=== PATIENT | male | born 1965 | race Hispanic/Latino ===

== ENCOUNTER 2016-10-26 12:00 | Inpatient (IN) | payer MEDICARE ==
[2016-10-26] MEDS ORDERED: traMADol HCl 50 MG TAB PO PRN (13:04)
[2016-10-26 13:48] LABS: #Basophils 0.1 thou/uL (0.0-0.2); #Eosinphils 0.1 thou/uL (0.0-0.7); #Lymphocytes 1.5 thou/uL (1.20-3.40); #Monocytes 0.4 thou/uL (0.11-0.59); #Neutrophils 4.9 thou/uL (1.40-6.50); %Basophils 0.9 % (0.0-1.0); %Eosinophils 1.3 % (0.0-10.0); %Lymphocytes 21.5 % (21.0-51.0); %Monocytes 6.2 % (0.0-10.0); %Neutrophils 70.2 % (42.0-75.0); Hemoglobin 13.4 g/dL (14.0-18.0); Mean Corpuscular HGB CONC 34.8 g/dL (32.0-36.0); Mean Corpuscular Hemoglobin 29.6 pg (27.0-31.0); Mean Corpuscular Volume 85.1 fl (80.0-94.0); Mean Platelet Volume 6.8 fL (7.4-10.4); Platelet Count 316 thou/uL (130-400); RBC Distribution Width 11.7 % (11.5-14.5); Red Blood Cell (RBC) Count 4.53 mill/uL (4.70-6.10); White Blood Cell (WBC) Count 6.9 thou/uL (4.8-10.8)
[2016-10-26 13:54] LABS: ALT (SGPT) 11 U/L (8-55); AST (SGOT) 11 U/L (5-34); Albumin 3.4 g/dL (3.5-5.0); Alkaline Phosphatase 74 U/L (40-150); Anion Gap 13 mmol/L (10-20); BUN (Urea Nitrogen) 14 mg/dL (8.9-20.6); Bilirubin, Total 0.4 mg/dL (0.2-1.2); Calc. Creatinine Clearance 0 mL/min (70-130); Calcium 9.3 mg/dL (7.8-10.44); Carbon Dioxide 28 mmol/L (22-29); Chloride 106 mmol/L (98-107); Estimated GFR-MDRD Greater than 90; Globulin 3.5 g/dL (2.4-3.5); Glucose 93 mg/dL (70-105); Potassium 3.6 mmol/L (3.5-5.1); Protein, Total 6.9 g/dL (6.0-8.3); Sodium 143 mmol/L (136-145)
[2016-10-26] MEDS: Piperacillin/Tazobactam 2.25 GM in Sodium Chloride 0.9% 100 ML IVPB SCH ×2 (16:00→23:33)
[2016-10-26] MEDS: Enoxaparin Sodium 30 MG/0.3 ML SYRINGE SC SCH (18:56)
--- NOTE | 2016-10-26 20:58 | RAD ---
PELVIS ONE VIEW: Date: 10-26-16 FINDINGS: A single view of the pelvis shows an area of distinct lucency in the right ischial tuberosity. If th is correlates with the site of the decubitus ulcer, the possibility of osteomyelitis should be stron gly considered. The remainder of the bony pelvis appears intact with no fracture or area of bony enrique truction. There is narrowing of each hip joint with mild osteophytes. Bursal calcifications are seen over each greater trochanter. IMPRESSION: Lucency of the right ischial tuberosity. If correlating with the site of known ulcer, the possibilit y of osteomyelitis should be considered. MRI, if the patient is able, would be the next step. POS: HOME
[2016-10-26] MEDS ORDERED: Vancomycin HCl 1.5 GM in Sodium Chloride 0.9% 250 ML 300 ML IVPB SCH (21:00)
[2016-10-26] MEDS ORDERED: Vancomycin HCl 750 MG in Sodium Chloride 0.9% 250 ML 250 ML IVPB SCH ×4 (21:15)
[2016-10-27] MEDS: Piperacillin/Tazobactam 2.25 GM in Sodium Chloride 0.9% 100 ML IVPB SCH ×2 (05:50→15:34)
[2016-10-27] MEDS ORDERED: Vancomycin HCl 750 MG in Sodium Chloride 0.9% 250 ML 250 ML IVPB SCH ×2 (09:00→09:45)
[2016-10-27] MEDS ORDERED: Saccharomyces boulardii 250 MG CAP PO SCH (09:00)
[2016-10-27] MEDS: Enoxaparin Sodium 30 MG/0.3 ML SYRINGE SC SCH (17:16)
[2016-10-27 18:52] VITALS: BP 101/65; TEMP 98.4
--- NOTE | 2016-10-27 19:10 | RAD ---
CERVICAL SPINE ONE VIEW 10/27/16 Single AP view was obtained for MRI clearance. There is no lateral view. A single tie wire is seen o verlying the lower cervical spine. This is presumably from old cervical spine surgery. The odds that this would be significant or a contraindication for an MRI are low. The final determination of such will need to be done by the radiologist reading the MRI. Typically, wires such as this would not be an issue. IMPRESSION: Single tie wire is noted. See comments above. POS: HOME
== END 2016-10-27 20:10 | disposition short-term general hospital (02) | DRG 539 ==
LOC: BURMED 12:00
PROVIDERS: ADMIT Family Medicine; ATTEND Family Medicine
DX: M86.8X8 Other osteomyelitis, other site (principal); L89.314 Pressure ulcer of right buttock, stage 4; G82.20 Paraplegia, unspecified; N31.9 Neuromuscular dysfunction of bladder, unspecified
CPT/HCPCS: 36415; 72020; 72170; 80053; 85025; 87040; 87070; 87077; 87186; 87205; 97602; A4216; J1650; J2543; J3370; J7050

== ENCOUNTER 2016-11-03 16:45 | Inpatient (IN) | payer MEDICARE ==
[2016-11-03] MEDS ORDERED: Lisinopril 5 MG TAB ONE (19:29)
[2016-11-03 20:10] VITALS: BMI 15.7
[2016-11-03] MEDS: traMADol HCl 50 MG TAB PO PRN (22:29)
[2016-11-03] MEDS: metroNIDAZOLE 250 MG TAB PO SCH (22:29)
[2016-11-04] MEDS: metroNIDAZOLE 250 MG TAB PO SCH ×3 (08:49→20:52)
[2016-11-04] MEDS: Saccharomyces boulardii 250 MG CAP PO SCH (08:50)
[2016-11-04] MEDS: cefTRIAXone\\ROCEPHIN 2 GM in Sodium Chloride 0.9% 100 ML IVPB SCH (13:32)
[2016-11-04] MEDS: Enoxaparin Sodium 30 MG/0.3 ML SYRINGE SC SCH (18:27)
[2016-11-04] MEDS: traMADol HCl 50 MG TAB PO PRN (20:57)
[2016-11-05] MEDS: metroNIDAZOLE 250 MG TAB PO SCH ×3 (09:42→20:17)
[2016-11-05] MEDS: Saccharomyces boulardii 250 MG CAP PO SCH (09:43)
[2016-11-05] MEDS: cefTRIAXone\\ROCEPHIN 2 GM in Sodium Chloride 0.9% 100 ML IVPB SCH (13:17)
[2016-11-05] MEDS: Enoxaparin Sodium 30 MG/0.3 ML SYRINGE SC SCH (18:29)
[2016-11-05] MEDS: traMADol HCl 50 MG TAB PO PRN (21:49)
[2016-11-06] MEDS: Saccharomyces boulardii 250 MG CAP PO SCH (08:58)
[2016-11-06] MEDS: metroNIDAZOLE 250 MG TAB PO SCH ×3 (08:59→21:10)
[2016-11-06] MEDS: cefTRIAXone\\ROCEPHIN 2 GM in Sodium Chloride 0.9% 100 ML IVPB SCH (13:38)
[2016-11-06] MEDS: Enoxaparin Sodium 30 MG/0.3 ML SYRINGE SC SCH (18:40)
[2016-11-06] MEDS: traMADol HCl 50 MG TAB PO PRN (21:10)
[2016-11-07] MEDS: metroNIDAZOLE 250 MG TAB PO SCH ×3 (09:03→21:28)
[2016-11-07] MEDS: Saccharomyces boulardii 250 MG CAP PO SCH (09:03)
[2016-11-07] MEDS: cefTRIAXone\\ROCEPHIN 2 GM in Sodium Chloride 0.9% 100 ML IVPB SCH (12:18)
[2016-11-07] MEDS: Enoxaparin Sodium 30 MG/0.3 ML SYRINGE SC SCH (18:18)
[2016-11-08] MEDS: metroNIDAZOLE 250 MG TAB PO SCH ×3 (08:49→21:06)
[2016-11-08] MEDS: Saccharomyces boulardii 250 MG CAP PO SCH (08:50)
[2016-11-08] MEDS: cefTRIAXone\\ROCEPHIN 2 GM in Sodium Chloride 0.9% 100 ML IVPB SCH (12:18)
[2016-11-08] MEDS: Enoxaparin Sodium 30 MG/0.3 ML SYRINGE SC SCH (18:37)
[2016-11-09] MEDS: metroNIDAZOLE 250 MG TAB PO SCH ×3 (09:09→21:33)
[2016-11-09] MEDS: Saccharomyces boulardii 250 MG CAP PO SCH (09:10)
[2016-11-09] MEDS: cefTRIAXone\\ROCEPHIN 2 GM in Sodium Chloride 0.9% 100 ML IVPB SCH (11:26)
[2016-11-09] MEDS: Enoxaparin Sodium 30 MG/0.3 ML SYRINGE SC SCH (17:52)
[2016-11-09] MEDS: traMADol HCl 50 MG TAB PO PRN (21:33)
[2016-11-10] MEDS: metroNIDAZOLE 250 MG TAB PO SCH ×3 (10:32→20:58)
[2016-11-10] MEDS: Saccharomyces boulardii 250 MG CAP PO SCH (10:33)
[2016-11-10] MEDS: cefTRIAXone\\ROCEPHIN 2 GM in Sodium Chloride 0.9% 100 ML IVPB SCH (11:59)
[2016-11-10] MEDS: Enoxaparin Sodium 30 MG/0.3 ML SYRINGE SC SCH (17:53)
[2016-11-11] MEDS: Saccharomyces boulardii 250 MG CAP PO SCH (08:26)
[2016-11-11] MEDS: metroNIDAZOLE 250 MG TAB PO SCH ×3 (08:26→21:19)
[2016-11-11] MEDS: cefTRIAXone\\ROCEPHIN 2 GM in Sodium Chloride 0.9% 100 ML IVPB SCH (12:21)
[2016-11-11] MEDS: Enoxaparin Sodium 30 MG/0.3 ML SYRINGE SC SCH (17:18)
[2016-11-11] MEDS: traMADol HCl 50 MG TAB PO PRN (21:25)
[2016-11-12] MEDS: metroNIDAZOLE 250 MG TAB PO SCH ×3 (08:54→21:24)
[2016-11-12] MEDS: Saccharomyces boulardii 250 MG CAP PO SCH (08:55)
[2016-11-12] MEDS: cefTRIAXone\\ROCEPHIN 2 GM in Sodium Chloride 0.9% 100 ML IVPB SCH (12:20)
[2016-11-12] MEDS: Enoxaparin Sodium 30 MG/0.3 ML SYRINGE SC SCH (18:01)
[2016-11-13] MEDS: metroNIDAZOLE 250 MG TAB PO SCH ×3 (09:47→20:42)
[2016-11-13] MEDS: Saccharomyces boulardii 250 MG CAP PO SCH (09:48)
[2016-11-13] MEDS: cefTRIAXone\\ROCEPHIN 2 GM in Sodium Chloride 0.9% 100 ML IVPB SCH (12:55)
[2016-11-13] MEDS: Enoxaparin Sodium 30 MG/0.3 ML SYRINGE SC SCH (18:23)
[2016-11-13] MEDS: traMADol HCl 50 MG TAB PO PRN (22:55)
[2016-11-14] MEDS: metroNIDAZOLE 250 MG TAB PO SCH ×3 (08:53→21:33)
[2016-11-14] MEDS: Saccharomyces boulardii 250 MG CAP PO SCH (08:53)
[2016-11-14] MEDS: cefTRIAXone\\ROCEPHIN 2 GM in Sodium Chloride 0.9% 100 ML IVPB SCH (12:19)
[2016-11-14] MEDS: Enoxaparin Sodium 30 MG/0.3 ML SYRINGE SC SCH (17:53)
[2016-11-15] MEDS: metroNIDAZOLE 250 MG TAB PO SCH ×3 (08:43→21:35)
[2016-11-15] MEDS: Saccharomyces boulardii 250 MG CAP PO SCH (08:44)
[2016-11-15] MEDS: cefTRIAXone\\ROCEPHIN 2 GM in Sodium Chloride 0.9% 100 ML IVPB SCH (13:00)
[2016-11-15] MEDS: Enoxaparin Sodium 30 MG/0.3 ML SYRINGE SC SCH (17:30)
[2016-11-16] MEDS: metroNIDAZOLE 250 MG TAB PO SCH ×3 (08:42→21:51)
[2016-11-16] MEDS: Saccharomyces boulardii 250 MG CAP PO SCH (08:43)
[2016-11-16] MEDS: traMADol HCl 50 MG TAB PO PRN (10:27)
[2016-11-16] MEDS: cefTRIAXone\\ROCEPHIN 2 GM in Sodium Chloride 0.9% 100 ML IVPB SCH (12:56)
[2016-11-16] MEDS: Enoxaparin Sodium 30 MG/0.3 ML SYRINGE SC SCH (18:08)
[2016-11-17] MEDS: Saccharomyces boulardii 250 MG CAP PO SCH (08:36)
[2016-11-17] MEDS: metroNIDAZOLE 250 MG TAB PO SCH ×3 (08:36→21:54)
[2016-11-17] MEDS: cefTRIAXone\\ROCEPHIN 2 GM in Sodium Chloride 0.9% 100 ML IVPB SCH (12:44)
[2016-11-17] MEDS: Enoxaparin Sodium 30 MG/0.3 ML SYRINGE SC SCH (17:58)
[2016-11-18] MEDS: metroNIDAZOLE 250 MG TAB PO SCH ×3 (08:39→20:56)
[2016-11-18] MEDS: Saccharomyces boulardii 250 MG CAP PO SCH (08:40)
[2016-11-18] MEDS: traMADol HCl 50 MG TAB PO PRN (10:26)
[2016-11-18] MEDS: cefTRIAXone\\ROCEPHIN 2 GM in Sodium Chloride 0.9% 100 ML IVPB SCH (12:21)
[2016-11-18] MEDS: Enoxaparin Sodium 30 MG/0.3 ML SYRINGE SC SCH (17:43)
[2016-11-19] MEDS: metroNIDAZOLE 250 MG TAB PO SCH ×3 (08:41→21:24)
[2016-11-19] MEDS: Saccharomyces boulardii 250 MG CAP PO SCH (08:41)
[2016-11-19] MEDS: cefTRIAXone\\ROCEPHIN 2 GM in Sodium Chloride 0.9% 100 ML IVPB SCH (12:13)
[2016-11-19] MEDS: Enoxaparin Sodium 30 MG/0.3 ML SYRINGE SC SCH (17:45)
[2016-11-20 06:37] LABS: Hemoglobin 14.4 g/dL (14.0-18.0); Platelet Count 171 thou/uL (130-400)
[2016-11-20 06:48] LABS: Calc. Creatinine Clearance 106 mL/min (70-130); Estimated GFR-MDRD Greater than 90
[2016-11-20] MEDS: Saccharomyces boulardii 250 MG CAP PO SCH (08:30)
[2016-11-20] MEDS: metroNIDAZOLE 250 MG TAB PO SCH ×3 (08:30→20:08)
[2016-11-20] MEDS: cefTRIAXone\\ROCEPHIN 2 GM in Sodium Chloride 0.9% 100 ML IVPB SCH (12:44)
[2016-11-20] MEDS: Enoxaparin Sodium 30 MG/0.3 ML SYRINGE SC SCH (18:07)
[2016-11-21] MEDS: metroNIDAZOLE 250 MG TAB PO SCH ×3 (09:13→21:01)
[2016-11-21] MEDS: Saccharomyces boulardii 250 MG CAP PO SCH (09:13)
[2016-11-21] MEDS: cefTRIAXone\\ROCEPHIN 2 GM in Sodium Chloride 0.9% 100 ML IVPB SCH (12:14)
[2016-11-21] MEDS ORDERED: metroNIDAZOLE 250 MG TAB ONE ×2 (17:40)
[2016-11-21] MEDS ORDERED: Enoxaparin Sodium 30 MG/0.3 ML SYRINGE ONE (17:41)
[2016-11-21] MEDS: Enoxaparin Sodium 30 MG/0.3 ML SYRINGE SC SCH (18:00)
[2016-11-22 05:57] LABS: #Basophils 0.1 thou/uL (0.0-0.2); #Eosinphils 0.1 thou/uL (0.0-0.7); #Lymphocytes 1.4 thou/uL (1.20-3.40); #Monocytes 0.4 thou/uL (0.11-0.59); #Neutrophils 1.9 thou/uL (1.40-6.50); %Basophils 1.7 % (0.0-1.0); %Eosinophils 1.8 % (0.0-10.0); %Monocytes 10.8 % (0.0-10.0); %Neutrophils 48.6 % (42.0-75.0); Mean Corpuscular Hemoglobin 30.2 pg (27.0-31.0); Mean Corpuscular Volume 88.7 fl (80.0-94.0); Mean Platelet Volume 9.8 fL (7.4-10.4); Platelet Count 159 thou/uL (130-400); RBC Distribution Width 12.5 % (11.5-14.5); Red Blood Cell (RBC) Count 4.63 mill/uL (4.70-6.10); White Blood Cell (WBC) Count 3.8 thou/uL (4.8-10.8)
[2016-11-22 06:11] LABS: ALT (SGPT) 21 U/L (8-55); AST (SGOT) 21 U/L (5-34); Albumin 3.2 g/dL (3.5-5.0); Alkaline Phosphatase 65 U/L (40-150); Anion Gap 13 mmol/L (10-20); BUN (Urea Nitrogen) 10 mg/dL (8.9-20.6); Bilirubin, Total 0.3 mg/dL (0.2-1.2); Calc. Creatinine Clearance 104 mL/min (70-130); Calcium 8.7 mg/dL (7.8-10.44); Carbon Dioxide 27 mmol/L (22-29); Chloride 103 mmol/L (98-107); Estimated GFR-MDRD Greater than 90; Globulin 2.7 g/dL (2.4-3.5); Glucose 91 mg/dL (70-105); Potassium 3.8 mmol/L (3.5-5.1); Protein, Total 5.9 g/dL (6.0-8.3); Sodium 139 mmol/L (136-145)
[2016-11-22] MEDS: metroNIDAZOLE 250 MG TAB PO SCH ×3 (09:20→21:38)
[2016-11-22] MEDS: Saccharomyces boulardii 250 MG CAP PO SCH (09:20)
[2016-11-22] MEDS: cefTRIAXone\\ROCEPHIN 2 GM in Sodium Chloride 0.9% 100 ML IVPB SCH (11:57)
[2016-11-22 15:37] LABS: CRP (Inflammatory) Less than 0.50 mg/dL (= or < 0.5)
[2016-11-22] MEDS: Enoxaparin Sodium 30 MG/0.3 ML SYRINGE SC SCH (17:54)
[2016-11-23] MEDS: metroNIDAZOLE 250 MG TAB PO SCH ×3 (08:22→20:41)
[2016-11-23] MEDS: Saccharomyces boulardii 250 MG CAP PO SCH (08:22)
[2016-11-23] MEDS: cefTRIAXone\\ROCEPHIN 2 GM in Sodium Chloride 0.9% 100 ML IVPB SCH (15:38)
[2016-11-23] MEDS: Enoxaparin Sodium 30 MG/0.3 ML SYRINGE SC SCH (17:18)
[2016-11-24 05:32] LABS: Hemoglobin 13.7 g/dL (14.0-18.0); Platelet Count 162 thou/uL (130-400)
[2016-11-24 05:41] LABS: Calc. Creatinine Clearance 104 mL/min (70-130); Estimated GFR-MDRD Greater than 90
[2016-11-24] MEDS: metroNIDAZOLE 250 MG TAB PO SCH ×3 (09:10→21:00)
[2016-11-24] MEDS: Saccharomyces boulardii 250 MG CAP PO SCH (09:11)
[2016-11-24] MEDS: cefTRIAXone\\ROCEPHIN 2 GM in Sodium Chloride 0.9% 100 ML IVPB SCH (12:02)
[2016-11-24] MEDS: Enoxaparin Sodium 30 MG/0.3 ML SYRINGE SC SCH (17:46)
[2016-11-25] MEDS: Saccharomyces boulardii 250 MG CAP PO SCH (09:21)
[2016-11-25] MEDS: metroNIDAZOLE 250 MG TAB PO SCH ×3 (09:21→21:24)
[2016-11-25] MEDS: cefTRIAXone\\ROCEPHIN 2 GM in Sodium Chloride 0.9% 100 ML IVPB SCH (12:33)
[2016-11-25] MEDS: Enoxaparin Sodium 30 MG/0.3 ML SYRINGE SC SCH (17:30)
[2016-11-26 05:14] LABS: Hemoglobin 14.3 g/dL (14.0-18.0); Platelet Count 137 thou/uL (130-400)
[2016-11-26 05:21] LABS: Calc. Creatinine Clearance 100 mL/min (70-130); Estimated GFR-MDRD Greater than 90
[2016-11-26] MEDS: metroNIDAZOLE 250 MG TAB PO SCH ×3 (09:18→21:24)
[2016-11-26] MEDS: Saccharomyces boulardii 250 MG CAP PO SCH (09:19)
[2016-11-26] MEDS: cefTRIAXone\\ROCEPHIN 2 GM in Sodium Chloride 0.9% 100 ML IVPB SCH (13:12)
[2016-11-26] MEDS: Enoxaparin Sodium 30 MG/0.3 ML SYRINGE SC SCH (18:50)
[2016-11-27] MEDS: metroNIDAZOLE 250 MG TAB PO SCH ×3 (08:53→21:42)
[2016-11-27] MEDS: Saccharomyces boulardii 250 MG CAP PO SCH (08:53)
[2016-11-27] MEDS: cefTRIAXone\\ROCEPHIN 2 GM in Sodium Chloride 0.9% 100 ML IVPB SCH (12:31)
[2016-11-27] MEDS: Enoxaparin Sodium 30 MG/0.3 ML SYRINGE SC SCH (18:41)
[2016-11-28 06:04] LABS: Hemoglobin 14.2 g/dL (14.0-18.0); Platelet Count 129 thou/uL (130-400)
[2016-11-28 06:30] LABS: Calc. Creatinine Clearance 102 mL/min (70-130); Estimated GFR-MDRD Greater than 90
[2016-11-28] MEDS: Saccharomyces boulardii 250 MG CAP PO SCH (09:17)
[2016-11-28] MEDS: metroNIDAZOLE 250 MG TAB PO SCH ×3 (09:17→21:53)
[2016-11-28] MEDS: cefTRIAXone\\ROCEPHIN 2 GM in Sodium Chloride 0.9% 100 ML IVPB SCH (11:44)
[2016-11-28] MEDS: traMADol HCl 50 MG TAB PO PRN (17:38)
[2016-11-28] MEDS: Enoxaparin Sodium 30 MG/0.3 ML SYRINGE SC SCH (17:39)
[2016-11-28] MEDS: Acetaminophen 325 MG TAB PO PRN (20:21)
[2016-11-29] MEDS: Acetaminophen 325 MG TAB PO PRN ×2 (06:01→15:23)
[2016-11-29] MEDS: Saccharomyces boulardii 250 MG CAP PO SCH (08:58)
[2016-11-29] MEDS: metroNIDAZOLE 250 MG TAB PO SCH ×3 (08:58→21:46)
[2016-11-29 11:07] LABS: #Lymphocytes 0.5 thou/uL (1.20-3.40); #Monocytes 0.3 thou/uL (0.11-0.59); #Neutrophils 1.6 thou/uL (1.40-6.50); %Basophils 1.3 % (0.0-1.0); %Lymphocytes 19.1 % (21.0-51.0); %Neutrophils 66.6 % (42.0-75.0); Mean Corpuscular HGB CONC 33.9 g/dL (32.0-36.0); Mean Corpuscular Hemoglobin 30.1 pg (27.0-31.0); Mean Corpuscular Volume 88.7 fl (80.0-94.0); Mean Platelet Volume 10.1 fL (7.4-10.4); PLT Morphology Comment PATIENT HISTORY OF DECREASING PLATELET COUNTS; Platelet Count 109 thou/uL (130-400); RBC Distribution Width 12.5 % (11.5-14.5); Red Blood Cell (RBC) Count 4.64 mill/uL (4.70-6.10); White Blood Cell (WBC) Count 2.4 thou/uL (4.8-10.8)
[2016-11-29 11:14] LABS: Bilirubin Negative (Negative); Blood, Urine Negative (Negative); Clarity Clear (Clear); Glucose, Urine (Dipstick) Negative (Negative); Leukocyte Trace (Negative); Nitrite Negative (Negative); Protein, Urine (Dipstick) Negative (Neg-Trace); Urobilinogen 0.2 mg/dL (0.2-1.0)
[2016-11-29 11:26] LABS: Bacteria/HPF None Seen HPF (None Seen); Crystals/HPF None Seen HPF (Negative); Hyaline Casts/LPF NONE SEEN LPF (0-3 Hyaline); Other Casts/LPF None Seen LPF (0-3 Hyaline); Oval Fat Bodies/HPF None Seen HPF (None Seen); RBC/HPF None Seen HPF (0-3); Renal Epithelial None Seen HPF (0-3); Sperm/HPF None Seen HPF (None Seen); Squamous Epithelial 0-3 HPF (0-3); Transitional Epithelial NONE SEEN HPF (0-3); Trichomonas/HPF None Seen HPF (None Seen); WBC/HPF 0-3 HPF (0-3); Yeast-All Forms None Seen HPF (None Seen)
[2016-11-29 11:27] LABS: MDiff Complete? YES
[2016-11-29] MEDS: cefTRIAXone\\ROCEPHIN 2 GM in Sodium Chloride 0.9% 100 ML IVPB SCH (12:38)
[2016-11-29] MEDS: Enoxaparin Sodium 30 MG/0.3 ML SYRINGE SC SCH (17:44)
[2016-11-30 05:41] LABS: Calc. Creatinine Clearance 108 mL/min (70-130); Estimated GFR-MDRD Greater than 90
[2016-11-30 05:48] LABS: Hemoglobin 14.2 g/dL (14.0-18.0); Platelet Count 99 thou/uL (130-400)
[2016-11-30] MEDS: Saccharomyces boulardii 250 MG CAP PO SCH (09:12)
[2016-11-30] MEDS ORDERED: traMADol HCl 50 MG TAB PO PRN ×2 (10:53)
[2016-11-30] MEDS: cefTRIAXone\\ROCEPHIN 2 GM in Sodium Chloride 0.9% 100 ML IVPB SCH (12:10)
[2016-11-30] MEDS ORDERED: metroNIDAZOLE 250 MG TAB PO SCH (15:00)
[2016-11-30] MEDS: metroNIDAZOLE 250 MG TAB PO SCH ×2 (15:15→21:46)
[2016-11-30] MEDS: Enoxaparin Sodium 30 MG/0.3 ML SYRINGE SC SCH (17:21)
[2016-12-01] MEDS: Saccharomyces boulardii 250 MG CAP PO SCH (08:49)
[2016-12-01] MEDS: metroNIDAZOLE 250 MG TAB PO SCH ×3 (08:49→21:47)
[2016-12-01] MEDS: cefTRIAXone\\ROCEPHIN 2 GM in Sodium Chloride 0.9% 100 ML IVPB SCH (13:10)
[2016-12-01] MEDS: Enoxaparin Sodium 30 MG/0.3 ML SYRINGE SC SCH (17:12)
[2016-12-02 05:07] LABS: Calc. Creatinine Clearance 106 mL/min (70-130); Estimated GFR-MDRD Greater than 90
[2016-12-02 05:09] LABS: Hemoglobin 13.8 g/dL (14.0-18.0); Platelet Count 109 thou/uL (130-400)
[2016-12-02] MEDS: Saccharomyces boulardii 250 MG CAP PO SCH (09:30)
[2016-12-02] MEDS: metroNIDAZOLE 250 MG TAB PO SCH ×3 (09:30→20:31)
[2016-12-02] MEDS: cefTRIAXone\\ROCEPHIN 2 GM in Sodium Chloride 0.9% 100 ML IVPB SCH (13:00)
[2016-12-02] MEDS: Enoxaparin Sodium 30 MG/0.3 ML SYRINGE SC SCH (17:58)
[2016-12-03] MEDS: metroNIDAZOLE 250 MG TAB PO SCH ×3 (09:05→20:43)
[2016-12-03] MEDS: Saccharomyces boulardii 250 MG CAP PO SCH (09:05)
[2016-12-03] MEDS: cefTRIAXone\\ROCEPHIN 2 GM in Sodium Chloride 0.9% 100 ML IVPB SCH (12:47)
[2016-12-03] MEDS: Enoxaparin Sodium 30 MG/0.3 ML SYRINGE SC SCH (17:53)
[2016-12-04] MEDS ORDERED: Gabapentin 300 MG CAP PO PRN (07:31)
[2016-12-04] MEDS ORDERED: Baclofen 10 MG TAB PO PRN (07:31)
[2016-12-04 07:37] LABS: Calc. Creatinine Clearance 100 mL/min (70-130); Estimated GFR-MDRD Greater than 90
[2016-12-04 07:38] LABS: Platelet Count 118 thou/uL (130-400)
[2016-12-04] MEDS: metroNIDAZOLE 250 MG TAB PO SCH ×3 (08:32→20:47)
[2016-12-04] MEDS: Saccharomyces boulardii 250 MG CAP PO SCH (08:33)
[2016-12-04] MEDS: cefTRIAXone\\ROCEPHIN 2 GM in Sodium Chloride 0.9% 100 ML IVPB SCH (12:28)
[2016-12-04] MEDS: Enoxaparin Sodium 30 MG/0.3 ML SYRINGE SC SCH (18:10)
[2016-12-05] MEDS: Saccharomyces boulardii 250 MG CAP PO SCH (09:25)
[2016-12-05] MEDS: metroNIDAZOLE 250 MG TAB PO SCH ×3 (09:25→20:57)
[2016-12-05] MEDS: cefTRIAXone\\ROCEPHIN 2 GM in Sodium Chloride 0.9% 100 ML IVPB SCH (12:01)
[2016-12-05] MEDS: Enoxaparin Sodium 30 MG/0.3 ML SYRINGE SC SCH (17:39)
[2016-12-05] MEDS: Acetaminophen 325 MG TAB PO PRN (23:11)
[2016-12-05] MEDS ORDERED: Ondansetron HCl/PF 4 MG/2 ML Vial SLOW IVP PRN (23:25)
[2016-12-06 06:19] LABS: Band 1 % (5-11); Eosinophils 2 % (0-10); Hemoglobin 13.6 g/dL (14.0-18.0); Lymphocytes 21 % (21-51); MDiff Complete? YES; Mean Corpuscular HGB CONC 33.8 g/dL (32.0-36.0); Mean Corpuscular Hemoglobin 29.4 pg (27.0-31.0); Mean Platelet Volume 9.4 fL (7.4-10.4); Monocytes 8 % (0-10); Neutrophil 68 % (42-75); Platelet Count 146 thou/uL (130-400); RBC Distribution Width 12.2 % (11.5-14.5); Red Blood Cell (RBC) Count 4.62 mill/uL (4.70-6.10); White Blood Cell (WBC) Count 6.2 thou/uL (4.8-10.8)
[2016-12-06 06:23] LABS: Calc. Creatinine Clearance 102 mL/min (70-130); Estimated GFR-MDRD Greater than 90
[2016-12-06] MEDS: Saccharomyces boulardii 250 MG CAP PO SCH (09:33)
[2016-12-06] MEDS: metroNIDAZOLE 250 MG TAB PO SCH ×3 (09:33→20:46)
[2016-12-06] MEDS: cefTRIAXone\\ROCEPHIN 2 GM in Sodium Chloride 0.9% 100 ML IVPB SCH (12:07)
[2016-12-06] MEDS: Enoxaparin Sodium 30 MG/0.3 ML SYRINGE SC SCH (18:05)
[2016-12-07] MEDS: metroNIDAZOLE 250 MG TAB PO SCH ×3 (10:05→20:54)
[2016-12-07] MEDS: Saccharomyces boulardii 250 MG CAP PO SCH (10:06)
[2016-12-07] MEDS: cefTRIAXone\\ROCEPHIN 2 GM in Sodium Chloride 0.9% 100 ML IVPB SCH (11:47)
[2016-12-07] MEDS: Enoxaparin Sodium 30 MG/0.3 ML SYRINGE SC SCH (17:57)
[2016-12-08 05:12] LABS: Hemoglobin 13.3 g/dL (14.0-18.0); Platelet Count 157 thou/uL (130-400)
[2016-12-08 05:20] LABS: Calc. Creatinine Clearance 108 mL/min (70-130); Estimated GFR-MDRD Greater than 90
[2016-12-08] MEDS: metroNIDAZOLE 250 MG TAB PO SCH ×3 (08:28→21:10)
[2016-12-08] MEDS: Saccharomyces boulardii 250 MG CAP PO SCH (08:29)
[2016-12-08] MEDS: cefTRIAXone\\ROCEPHIN 2 GM in Sodium Chloride 0.9% 100 ML IVPB SCH (11:44)
[2016-12-08] MEDS: Enoxaparin Sodium 30 MG/0.3 ML SYRINGE SC SCH (17:36)
[2016-12-09] MEDS: metroNIDAZOLE 250 MG TAB PO SCH ×3 (08:08→21:12)
[2016-12-09] MEDS: Saccharomyces boulardii 250 MG CAP PO SCH (08:08)
[2016-12-09] MEDS: cefTRIAXone\\ROCEPHIN 2 GM in Sodium Chloride 0.9% 100 ML IVPB SCH (11:29)
[2016-12-09] MEDS: Enoxaparin Sodium 30 MG/0.3 ML SYRINGE SC SCH (17:22)
[2016-12-09] MEDS: Acetaminophen 325 MG TAB PO PRN (22:43)
[2016-12-10 05:36] LABS: Hemoglobin 13.6 g/dL (14.0-18.0)
[2016-12-10 05:37] LABS: Calc. Creatinine Clearance 121 mL/min (70-130); Estimated GFR-MDRD Greater than 90; Platelet Count 185 thou/uL (130-400)
[2016-12-10] MEDS: Saccharomyces boulardii 250 MG CAP PO SCH (09:38)
[2016-12-10] MEDS: metroNIDAZOLE 250 MG TAB PO SCH ×3 (09:38→20:52)
[2016-12-10] MEDS: cefTRIAXone\\ROCEPHIN 2 GM in Sodium Chloride 0.9% 100 ML IVPB SCH (13:16)
[2016-12-10] MEDS: Enoxaparin Sodium 30 MG/0.3 ML SYRINGE SC SCH (17:52)
[2016-12-11 06:36] VITALS: BP 104/86
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
[2016-12-11] MEDS: Saccharomyces boulardii 250 MG CAP PO SCH (09:34)
[2016-12-11] MEDS: cefTRIAXone\\ROCEPHIN 2 GM in Sodium Chloride 0.9% 100 ML IVPB SCH (09:35)
[2016-12-11] MEDS: metroNIDAZOLE 250 MG TAB PO SCH (09:35)
[2016-12-11 10:43] VITALS: TEMP 98.3
== END 2016-12-11 14:45 | disposition home health service (06) | DRG 592 ==
LOC: BURMED 16:45
PROVIDERS: ADMIT Family Medicine; ATTEND Family Medicine
DX: L89.314 Pressure ulcer of right buttock, stage 4 (principal); G82.20 Paraplegia, unspecified; M86.9 Osteomyelitis, unspecified; Z99.3 Dependence on wheelchair; M60.9 Myositis, unspecified; N31.9 Neuromuscular dysfunction of bladder, unspecified; Z79.01 Long term (current) use of anticoagulants; Z95.828 Presence of other vascular implants and grafts; R50.9 Fever, unspecified
CPT/HCPCS: 36415; 81001; 82565; 85014; 85018; 85025; 85049; 85652; 86140; 87086; 97602; A4216; C1751; J0696; J1650; J2405; J7050

== ENCOUNTER 2017-09-10 20:20 | Inpatient (IN) | payer MEDICARE ==
[2017-09-11] MEDS ORDERED: traMADol HCl 50 MG TAB PO PRN (12:18)
[2017-09-11] MEDS ORDERED: Ciprofloxacin 500 MG TAB PO SCH (12:30)
[2017-09-11] MEDS ORDERED: Docusate 100 MG CAP PO PRN (13:07)
[2017-09-11] MEDS: Milk Of Magnesia 30 ML UDCUP PO PRN (13:23)
[2017-09-11] MEDS ORDERED: Ibuprofen 200 MG TAB PO PRN (14:07)
[2017-09-11] MEDS: Ciprofloxacin 500 MG TAB PO SCH (21:21)
[2017-09-12] MEDS: Floranex Packet PO SCH (08:52)
[2017-09-12] MEDS: Ciprofloxacin 500 MG TAB PO SCH ×2 (08:52→21:12)
[2017-09-12] MEDS: Milk Of Magnesia 30 ML UDCUP PO PRN (12:25)
[2017-09-12] MEDS: Bisacodyl 10 MG SUPP PR PRN (16:21)
[2017-09-12] MEDS: traMADol HCl 50 MG TAB PO PRN (18:34)
[2017-09-13 05:57] LABS: ALT (SGPT) 32 U/L (8-55); AST (SGOT) 22 U/L (5-34); Albumin 3.4 g/dL (3.5-5.0); Alkaline Phosphatase 78 U/L (40-150); Anion Gap 13 mmol/L (10-20); BUN (Urea Nitrogen) 16 mg/dL (8.9-20.6); Bilirubin, Total 0.6 mg/dL (0.2-1.2); Calc. Creatinine Clearance 119 mL/min (70-130); Carbon Dioxide 26 mmol/L (22-29); Chloride 103 mmol/L (98-107); Estimated GFR-MDRD Greater than 90; Globulin 3.3 g/dL (2.4-3.5); Glucose 99 mg/dL (70-105); Potassium 4.3 mmol/L (3.5-5.1); Protein, Total 6.7 g/dL (6.0-8.3); Sodium 138 mmol/L (136-145)
[2017-09-13 08:15] LABS: Hemoglobin 13.7 g/dL (14.0-18.0); Mean Corpuscular Volume 78.9 fL (80.0-94.0); Red Blood Cell (RBC) Count 4.85 mill/uL (4.70-6.10); White Blood Cell (WBC) Count 6.9 thou/uL (4.8-10.8)
[2017-09-13 08:16] LABS: Mean Corpuscular HGB CONC 35.7 g/dL (32.0-36.0); Mean Corpuscular Hemoglobin 28.1 pg (27.0-31.0)
[2017-09-13 08:20] LABS: #Basophils 0.1 thou/uL (0.0-0.2); #Eosinphils 0.2 thou/uL (0.0-0.7); #Lymphocytes 1.6 thou/uL (1.20-3.40); #Monocytes 0.5 thou/uL (0.11-0.59); #Neutrophils 4.5 thou/uL (1.40-6.50); %Eosinophils 2.7 % (0.0-10.0); %Lymphocytes 23.5 % (21.0-51.0); %Monocytes 7.7 % (0.0-10.0); %Neutrophils 65.1 % (42.0-75.0); Mean Platelet Volume 7.9 fL (7.4-10.4); Platelet Count 223 thou/uL (130-400); RBC Distribution Width 11.8 % (11.5-14.5)
[2017-09-13] MEDS: Ciprofloxacin 500 MG TAB PO SCH ×2 (08:31→21:35)
[2017-09-13] MEDS: Docusate 100 MG CAP PO SCH (08:31)
[2017-09-13] MEDS: Floranex Packet PO SCH (08:31)
[2017-09-13 12:15] LABS: CRP (Inflammatory) 7.85 mg/dL (= or < 0.5)
[2017-09-14] MEDS: Ciprofloxacin 500 MG TAB PO SCH ×2 (08:32→20:18)
[2017-09-14] MEDS: Docusate 100 MG CAP PO SCH (08:33)
[2017-09-14] MEDS: Floranex Packet PO SCH (08:33)
[2017-09-15] MEDS: Floranex Packet PO SCH (10:03)
[2017-09-15] MEDS: Ciprofloxacin 500 MG TAB PO SCH ×2 (10:03→21:47)
[2017-09-15] MEDS: Docusate 100 MG CAP PO SCH (10:04)
[2017-09-15] MEDS: Bisacodyl 10 MG SUPP PR PRN (17:03)
[2017-09-15] MEDS: traMADol HCl 50 MG TAB PO PRN (21:45)
[2017-09-16] MEDS ORDERED: Sodium Chloride 0.9% 0 ML ONE (07:37)
[2017-09-16] MEDS: Docusate 100 MG CAP PO SCH (08:57)
[2017-09-16] MEDS: Ciprofloxacin 500 MG TAB PO SCH ×2 (08:59→21:44)
[2017-09-16] MEDS: Floranex Packet PO SCH (09:02)
[2017-09-17] MEDS: Floranex Packet PO SCH (09:08)
[2017-09-17] MEDS: Ciprofloxacin 500 MG TAB PO SCH ×2 (09:08→20:49)
[2017-09-17] MEDS: Docusate 100 MG CAP PO SCH (09:08)
[2017-09-18] MEDS: Floranex Packet PO SCH (08:11)
[2017-09-18] MEDS: Ciprofloxacin 500 MG TAB PO SCH ×2 (08:11→21:25)
[2017-09-18] MEDS: Docusate 100 MG CAP PO SCH (08:11)
[2017-09-18] MEDS: Bisacodyl 10 MG SUPP PR PRN (13:31)
[2017-09-18] MEDS: Sulfameth/Trimethoprim DS 800-160mg TAB PO SCH (21:25)
[2017-09-18] MEDS: traMADol HCl 50 MG TAB PO PRN (21:25)
[2017-09-19] MEDS: Ciprofloxacin 500 MG TAB PO SCH ×2 (08:45→20:46)
[2017-09-19] MEDS: Docusate 100 MG CAP PO SCH (08:45)
[2017-09-19] MEDS: Floranex Packet PO SCH (08:45)
[2017-09-19] MEDS: Sulfameth/Trimethoprim DS 800-160mg TAB PO SCH ×2 (08:45→20:46)
[2017-09-20 05:48] LABS: ALT (SGPT) 20 U/L (8-55); AST (SGOT) 17 U/L (5-34); Albumin 3.6 g/dL (3.5-5.0); Alkaline Phosphatase 105 U/L (40-150); Anion Gap 15 mmol/L (10-20); BUN (Urea Nitrogen) 14 mg/dL (8.9-20.6); Bilirubin, Total 0.2 mg/dL (0.2-1.2); Calc. Creatinine Clearance 94 mL/min (70-130); Carbon Dioxide 22 mmol/L (22-29); Chloride 104 mmol/L (98-107); Estimated GFR-MDRD Greater than 90; Globulin 3.1 g/dL (2.4-3.5); Glucose 97 mg/dL (70-105); Potassium 4.4 mmol/L (3.5-5.1); Protein, Total 6.7 g/dL (6.0-8.3); Sodium 137 mmol/L (136-145)
[2017-09-20 06:19] LABS: %Neutrophils 61.6 % (42.0-75.0); Hemoglobin 14.4 g/dL (14.0-18.0); Mean Corpuscular HGB CONC 35.1 g/dL (32.0-36.0); Mean Corpuscular Hemoglobin 27.6 pg (27.0-31.0); Mean Corpuscular Volume 78.8 fL (80.0-94.0); Mean Platelet Volume 6.8 fL (7.4-10.4); Platelet Count 265 thou/uL (130-400); RBC Distribution Width 11.7 % (11.5-14.5); Red Blood Cell (RBC) Count 5.21 mill/uL (4.70-6.10); White Blood Cell (WBC) Count 7.2 thou/uL (4.8-10.8)
[2017-09-20 06:20] LABS: #Basophils 0.1 thou/uL (0.0-0.2); #Eosinphils 0.1 thou/uL (0.0-0.7); #Lymphocytes 2.1 thou/uL (1.20-3.40); #Monocytes 0.4 thou/uL (0.11-0.59); #Neutrophils 4.5 thou/uL (1.40-6.50); %Basophils 1.7 % (0.0-1.0); %Lymphocytes 28.8 % (21.0-51.0); %Monocytes 5.9 % (0.0-10.0)
[2017-09-20] MEDS: Docusate 100 MG CAP PO SCH (09:00)
[2017-09-20] MEDS: Floranex Packet PO SCH (09:00)
[2017-09-20] MEDS: Ciprofloxacin 500 MG TAB PO SCH ×2 (09:00→20:53)
[2017-09-20] MEDS: Sulfameth/Trimethoprim DS 800-160mg TAB PO SCH ×2 (09:01→20:53)
[2017-09-20 12:43] LABS: CRP (Inflammatory) 2.28 mg/dL (= or < 0.5)
[2017-09-20] MEDS: traMADol HCl 50 MG TAB PO PRN (21:25)
[2017-09-21] MEDS: Ciprofloxacin 500 MG TAB PO SCH ×2 (08:38→21:19)
[2017-09-21] MEDS: Floranex Packet PO SCH (08:38)
[2017-09-21] MEDS: Sulfameth/Trimethoprim DS 800-160mg TAB PO SCH ×2 (08:38→21:18)
[2017-09-21] MEDS: Docusate 100 MG CAP PO SCH (08:39)
[2017-09-21] MEDS: Milk Of Magnesia 30 ML UDCUP PO PRN (13:30)
[2017-09-21] MEDS: Bisacodyl 10 MG SUPP PR PRN (15:26)
[2017-09-21] MEDS: traMADol HCl 50 MG TAB PO PRN (21:31)
[2017-09-22] MEDS: Sulfameth/Trimethoprim DS 800-160mg TAB PO SCH ×2 (09:09→20:33)
[2017-09-22] MEDS: Ciprofloxacin 500 MG TAB PO SCH ×2 (09:09→20:33)
[2017-09-22] MEDS: Floranex Packet PO SCH (09:09)
[2017-09-22] MEDS: Docusate 100 MG CAP PO SCH (09:09)
[2017-09-23] MEDS: Ciprofloxacin 500 MG TAB PO SCH ×2 (08:35→20:49)
[2017-09-23] MEDS: Floranex Packet PO SCH (08:35)
[2017-09-23] MEDS: Sulfameth/Trimethoprim DS 800-160mg TAB PO SCH ×2 (08:35→20:49)
[2017-09-23] MEDS: Docusate 100 MG CAP PO SCH (08:35)
[2017-09-24] MEDS: Floranex Packet PO SCH (08:55)
[2017-09-24] MEDS: Sulfameth/Trimethoprim DS 800-160mg TAB PO SCH ×2 (08:57→20:19)
[2017-09-24] MEDS: Docusate 100 MG CAP PO SCH (08:57)
[2017-09-24] MEDS: Ciprofloxacin 500 MG TAB PO SCH ×2 (08:57→20:19)
[2017-09-24] MEDS: Bisacodyl 10 MG SUPP PR PRN ×2 (14:21→16:04)
[2017-09-25] MEDS: Docusate 100 MG CAP PO SCH (09:26)
[2017-09-25] MEDS: Ciprofloxacin 500 MG TAB PO SCH ×2 (09:26→20:39)
[2017-09-25] MEDS: Sulfameth/Trimethoprim DS 800-160mg TAB PO SCH ×2 (09:26→20:39)
[2017-09-25] MEDS: Floranex Packet PO SCH (09:26)
[2017-09-26] MEDS: Ciprofloxacin 500 MG TAB PO SCH ×2 (08:53→21:08)
[2017-09-26] MEDS: Floranex Packet PO SCH (08:53)
[2017-09-26] MEDS: Sulfameth/Trimethoprim DS 800-160mg TAB PO SCH ×2 (08:53→21:08)
[2017-09-26] MEDS: Docusate 100 MG CAP PO SCH (08:53)
[2017-09-27 05:50] LABS: #Basophils 0.1 thou/uL (0.0-0.2); #Eosinphils 0.1 thou/uL (0.0-0.7); #Lymphocytes 1.7 thou/uL (1.20-3.40); #Monocytes 0.3 thou/uL (0.11-0.59); %Basophils 2.1 % (0.0-1.0); %Eosinophils 2.4 % (0.0-10.0); %Lymphocytes 32.4 % (21.0-51.0); %Monocytes 5.9 % (0.0-10.0); %Neutrophils 57.2 % (42.0-75.0); Hemoglobin 13.9 g/dL (14.0-18.0); Mean Corpuscular HGB CONC 34.3 g/dL (32.0-36.0); Mean Corpuscular Volume 78.8 fL (78.0-98.0); Mean Platelet Volume 8.2 fL (7.4-10.4); Platelet Count 193 thou/uL (130-400); RBC Distribution Width 12.1 % (11.5-14.5); Red Blood Cell (RBC) Count 5.15 mill/uL (4.70-6.10); White Blood Cell (WBC) Count 5.2 thou/uL (4.8-10.8)
[2017-09-27 06:18] LABS: ALT (SGPT) 13 U/L (8-55); AST (SGOT) 13 U/L (5-34); Albumin 3.5 g/dL (3.5-5.0); Alkaline Phosphatase 94 U/L (40-150); Anion Gap 12 mmol/L (10-20); BUN (Urea Nitrogen) 16 mg/dL (8.9-20.6); Bilirubin, Total 0.3 mg/dL (0.2-1.2); Calc. Creatinine Clearance 96 mL/min (70-130); Calcium 8.6 mg/dL (7.8-10.44); Carbon Dioxide 23 mmol/L (22-29); Chloride 108 mmol/L (98-107); Estimated GFR-MDRD Greater than 90; Globulin 2.7 g/dL (2.4-3.5); Glucose 98 mg/dL (70-105); Potassium 4.4 mmol/L (3.5-5.1); Protein, Total 6.2 g/dL (6.0-8.3); Sodium 139 mmol/L (136-145)
[2017-09-27] MEDS: Docusate 100 MG CAP PO SCH (10:00)
[2017-09-27] MEDS: Floranex Packet PO SCH (10:00)
[2017-09-27] MEDS: Ciprofloxacin 500 MG TAB PO SCH ×2 (10:00→22:19)
[2017-09-27] MEDS: Sulfameth/Trimethoprim DS 800-160mg TAB PO SCH ×2 (10:00→22:18)
[2017-09-27 12:12] LABS: CRP (Inflammatory) 0.62 mg/dL (= or < 0.5)
[2017-09-27] MEDS: Milk Of Magnesia 30 ML UDCUP PO PRN (15:34)
[2017-09-27] MEDS: Bisacodyl 10 MG SUPP PR PRN (18:20)
[2017-09-28] MEDS: Floranex Packet PO SCH (09:38)
[2017-09-28] MEDS: Ciprofloxacin 500 MG TAB PO SCH ×2 (09:39→19:34)
[2017-09-28] MEDS: Docusate 100 MG CAP PO SCH (09:39)
[2017-09-28] MEDS: Sulfameth/Trimethoprim DS 800-160mg TAB PO SCH ×2 (09:39→19:34)
[2017-09-29] MEDS: Sulfameth/Trimethoprim DS 800-160mg TAB PO SCH ×2 (09:34→21:59)
[2017-09-29] MEDS: Floranex Packet PO SCH (09:34)
[2017-09-29] MEDS: Ciprofloxacin 500 MG TAB PO SCH ×2 (09:34→21:59)
[2017-09-29] MEDS: Docusate 100 MG CAP PO SCH (09:35)
[2017-09-30] MEDS: Floranex Packet PO SCH (08:45)
[2017-09-30] MEDS: Docusate 100 MG CAP PO SCH (08:46)
[2017-09-30] MEDS: Ciprofloxacin 500 MG TAB PO SCH ×2 (08:46→20:28)
[2017-09-30] MEDS: Sulfameth/Trimethoprim DS 800-160mg TAB PO SCH ×2 (08:46→20:28)
[2017-09-30] MEDS: Milk Of Magnesia 30 ML UDCUP PO PRN (08:54)
[2017-09-30] MEDS: Bisacodyl 10 MG SUPP PR PRN (16:15)
[2017-10-01] MEDS: Docusate 100 MG CAP PO SCH (10:04)
[2017-10-01] MEDS: Ciprofloxacin 500 MG TAB PO SCH ×2 (10:05→21:12)
[2017-10-01] MEDS: Floranex Packet PO SCH (10:05)
[2017-10-01] MEDS: Sulfameth/Trimethoprim DS 800-160mg TAB PO SCH ×2 (10:05→21:11)
[2017-10-02] MEDS: Ciprofloxacin 500 MG TAB PO SCH ×2 (10:15→21:46)
[2017-10-02] MEDS: Sulfameth/Trimethoprim DS 800-160mg TAB PO SCH ×2 (10:15→21:46)
[2017-10-02] MEDS: Docusate 100 MG CAP PO SCH (10:16)
[2017-10-02] MEDS: Floranex Packet PO SCH (10:16)
[2017-10-03] MEDS: Ciprofloxacin 500 MG TAB PO SCH ×2 (08:55→21:55)
[2017-10-03] MEDS: Docusate 100 MG CAP PO SCH (08:55)
[2017-10-03] MEDS: Sulfameth/Trimethoprim DS 800-160mg TAB PO SCH ×2 (08:55→21:55)
[2017-10-03] MEDS: Floranex Packet PO SCH (08:56)
[2017-10-03] MEDS: Bisacodyl 10 MG SUPP PR PRN (14:22)
[2017-10-04 06:28] LABS: #Basophils 0.1 thou/uL (0.0-0.2); #Eosinphils 0.2 thou/uL (0.0-0.7); #Lymphocytes 1.8 thou/uL (1.20-3.40); #Monocytes 0.4 thou/uL (0.11-0.59); #Neutrophils 2.9 thou/uL (1.40-6.50); %Basophils 1.8 % (0.0-1.0); %Lymphocytes 34.1 % (21.0-51.0); %Monocytes 6.5 % (0.0-10.0); %Neutrophils 54.6 % (42.0-75.0); Mean Corpuscular Hemoglobin 27.7 pg (27.0-31.0); Mean Platelet Volume 9.5 fL (7.4-10.4); Platelet Count 153 thou/uL (130-400); RBC Distribution Width 12.2 % (11.5-14.5); Red Blood Cell (RBC) Count 5.06 mill/uL (4.70-6.10); White Blood Cell (WBC) Count 5.4 thou/uL (4.8-10.8)
[2017-10-04 06:54] LABS: ALT (SGPT) 21 U/L (8-55); AST (SGOT) 19 U/L (5-34); Albumin 3.5 g/dL (3.5-5.0); Alkaline Phosphatase 95 U/L (40-150); Anion Gap 14 mmol/L (10-20); BUN (Urea Nitrogen) 17 mg/dL (8.9-20.6); Bilirubin, Total 0.3 mg/dL (0.2-1.2); Calc. Creatinine Clearance 101 mL/min (70-130); Calcium 8.7 mg/dL (7.8-10.44); Carbon Dioxide 21 mmol/L (22-29); Chloride 107 mmol/L (98-107); Estimated GFR-MDRD Greater than 90; Globulin 2.7 g/dL (2.4-3.5); Glucose 88 mg/dL (70-105); Potassium 4.3 mmol/L (3.5-5.1); Protein, Total 6.2 g/dL (6.0-8.3); Sodium 138 mmol/L (136-145)
[2017-10-04] MEDS: Floranex Packet PO SCH (08:21)
[2017-10-04] MEDS: Sulfameth/Trimethoprim DS 800-160mg TAB PO SCH ×2 (08:21→21:20)
[2017-10-04] MEDS: Ciprofloxacin 500 MG TAB PO SCH ×2 (08:21→21:20)
[2017-10-04] MEDS: Docusate 100 MG CAP PO SCH (08:21)
[2017-10-04 11:50] LABS: CRP (Inflammatory) Less than 0.50 mg/dL (= or < 0.5)
[2017-10-05] MEDS: Ciprofloxacin 500 MG TAB PO SCH ×2 (08:43→20:29)
[2017-10-05] MEDS: Floranex Packet PO SCH (08:43)
[2017-10-05] MEDS: Sulfameth/Trimethoprim DS 800-160mg TAB PO SCH ×2 (08:43→20:29)
[2017-10-05] MEDS: Docusate 100 MG CAP PO SCH (08:43)
[2017-10-05 11:39] VITALS: BMI 22.7
[2017-10-06] MEDS: Ciprofloxacin 500 MG TAB PO SCH ×2 (08:18→20:27)
[2017-10-06] MEDS: Docusate 100 MG CAP PO SCH (08:18)
[2017-10-06] MEDS: Floranex Packet PO SCH (08:18)
[2017-10-06] MEDS: Sulfameth/Trimethoprim DS 800-160mg TAB PO SCH ×2 (08:18→20:27)
[2017-10-07] MEDS: Ciprofloxacin 500 MG TAB PO SCH ×2 (09:12→20:54)
[2017-10-07] MEDS: Docusate 100 MG CAP PO SCH (09:12)
[2017-10-07] MEDS: Floranex Packet PO SCH (09:13)
[2017-10-08] MEDS: Floranex Packet PO SCH (10:36)
[2017-10-08] MEDS: Ciprofloxacin 500 MG TAB PO SCH ×2 (10:37→21:01)
[2017-10-08] MEDS: Docusate 100 MG CAP PO SCH (10:38)
[2017-10-09 06:23] VITALS: BP 105/68; TEMP 97.7
[2017-10-09] MEDS: Floranex Packet PO SCH (08:58)
[2017-10-09] MEDS: Docusate 100 MG CAP PO SCH (08:59)
--- NOTE | 2017-10-09 20:39 | DIS ---
DATE OF ADMISSION: 09/10/2017 DATE OF DISCHARGE: 10/09/2017 ADMISSION DIAGNOSIS: Status post right ischial decubitus ulcer excision with musculocutaneous flap. SECONDARY DIAGNOSES: Neurogenic bladder and constipation. PROCEDURES: Regular wound care via nursing staff. HOSPITAL COURSE: A 51-year-old paraplegic male with chronic sacral and right ischial decubitus ulcers for which he had excision of stage IV right ischial pressure ulcer with pulsatile irrigation and right musculocutaneous flap reconstruction via Dr. Henrique Huang on 09/07/2017. The patient presented to our facility to have further wound care as he was also instructed to initially have positional limitations of lying on his left side only. He presented to our facility with SHEILA drain in place. This was eventually pulled as the drainage decreased. The patient was advised to continue on a course of ciprofloxacin via evaluation by Dr. Klein. Further followup of the patient's wound culture revealed resistance to this, thus Bactrim was added to complete a sufficient course as directed per the same amount of time as the ciprofloxacin. Top portion of the patient's wound remained open during his stay. This was followed up upon via Dr. Huang who did place a couple loose sutures followed by packing to the area. The patient received regular wound care therapy with repacking and application of Mepilex. The patient's surgical site gradually improved including the small open site at the top of the surgical lesion. His positional limitations were modified during his stay including ability to progress to lying on his back and sides followed up upon being able to sit for up to 30 minutes 3 times a day. The patient's wound has progressed to no longer needing a packing. He has been evaluated by Dr. Huang who has advised the patient may be able to discharge home with further wound care including dressing changes twice a day. The patient's has been instructed on proper protocol for this and he will have additional care with [facility]. The patient remained afebrile with no leukocytosis during his stay and has progressed enough to where he is able to discharge to his home at this time. DISPOSITION: The patient will be discharged home where he lives with his in a lot further wound care therapy via [facility]. He may follow up with myself in the clinic in a week and further with Dr. Huang as advised. DISCHARGE MEDICATION: Include ibuprofen p.r.n. MTDD
== END 2017-10-09 13:15 | disposition home or self-care (01) | DRG 592 ==
LOC: BURMED 20:20
PROVIDERS: ADMIT Family Medicine; ATTEND Family Medicine
DX: L89.314 Pressure ulcer of right buttock, stage 4 (principal); G82.20 Paraplegia, unspecified; N31.9 Neuromuscular dysfunction of bladder, unspecified; K59.00 Constipation, unspecified
CPT/HCPCS: 36415; 80053; 85025; 86140; 87070; 87077; 87186; 87205; A4216; G8981-GP-CI; G8982-GP-CH; G8987-GO-CK; G8988-GO-CI; G8989-GO-CK